=== PATIENT | female | born 1960 | race Caucasian/White ===

== ENCOUNTER → 2016-11-26 | Outpatient (CLI) | payer BC ==
[2016-11-26 10:12] LABS: CHLORIDE,CL 105 mmol/L (98-110); SODIUM,NA 141 mmol/L (136-146)
== END ==
LOC: MW.CHFP 09:18
PROVIDERS: ATTEND Emergency Medicine
DX: I10 Essential (primary) hypertension (principal); E78.00 Pure hypercholesterolemia, unspecified; E11.9 Type 2 diabetes mellitus without complications; Z86.2 Personal history of diseases of the blood and blood-forming organs and certain disorders involving the immune mechanism
CPT/HCPCS: 36415; 80053; 80061; 82728; 83036; 85027

== ENCOUNTER 2025-06-05 16:43 | Emergency (ER) | payer BC, MEDICAID ==
[2025-06-05] MEDS ORDERED: Sodium Chloride 0.9% 10 ML Syringe FLUSH PRN (16:55)
[2025-06-05] MEDS ORDERED: Sodium Chloride 0.9% 2.5 ML Syringe FLUSH PRN (16:55)
[2025-06-05] MEDS: Ondansetron 4 MG/2 ML SDV IVPUSH ONE ×2 (17:22→19:07)
[2025-06-05 17:33] LABS: BASOPHILS ABSOLUTE AUTO 0.05 K/uL (0.00-0.20); BASOPHILS PERCENT AUTO 0.7 % (0.0-1.0); EOSINOPHILS ABSOLUTE AUTO 0.36 K/uL (0.00-0.45); EOSINOPHILS PERCENT AUTO 4.8 % (0.0-6.0); IMMATURE GRAN ABSOLUTE AUTO 0.01 K/uL (0.00-0.05); IMMATURE GRAN PERCENT AUTO 0.1 % (0.0-0.4); LYMPHOCYTES ABSOLUTE AUTO 2.73 K/uL (1.00-4.80); LYMPHOCYTES PERCENT AUTO 36.6 % (24.0-44.0); MEAN PLATELET VOLUME 10.0 fL (9.4-12.3); MONOCYTES ABSOLUTE AUTO 0.60 K/uL (0.00-0.80); MONOCYTES PERCENT AUTO 8.1 % (0.0-8.0); NEUTROPHILS ABSOLUTE AUTO 3.70 K/uL (1.80-7.70); NEUTROPHILS PERCENT AUTO 49.7 % (41.0-71.0); NRBC ABSOLUTE 0.00 K/uL (0.00-0.02); NRBC PERCENT 0.0 /100WBC (0.0-0.2); PLATELET COUNT,PLT 229 K/uL (150-400); RED BLOOD CELL COUNT 4.21 M/uL (4.10-5.30); WHITE BLOOD CELL COUNT,WBC 7.45 K/uL (3.9-11.3)
[2025-06-05 17:45] LABS: INR 1.03 (0.86-1.11); PTT,PARTIAL THROMBOPLSTIN TIME 24.2 SEC (23.9-30.7)
[2025-06-05 17:52] LABS: A/G RATIO 1.2 (0.9-1.6); ALANINE AMINOTRANSFERASE,ALT 21.0 IU/L (14-63); ASPARTATE AMNIOTRANSFERASE,AST 18.0 IU/L (15-37); BILIRUBIN TOTAL 0.4 mg/dL (0.2-1.0); BLOOD UREA NITROGEN,BUN 19.0 mg/dL (7.0-18.0); CARBON DIOXIDE,CO2 25.9 mmol/L (21.0-32.0); CHLORIDE,CL 104.0 mmol/L (98-107); CREATININE 0.8 mg/dL (0.6-1.0); EST CRCL DRUG DOSING (CG) 54.31 mL/min; GLUCOSE RANDOM 144.0 mg/dL (74-106); POTASSIUM,K 3.4 mmol/L (3.5-5.1); PROTEIN TOTAL,TP 6.7 g/dL (6.4-8.2); SODIUM,NA 141.0 mmol/L (136-145)
[2025-06-05 17:54] LABS: ESTIMATED GFR 83.0 mL/min (>60)
[2025-06-05] MEDS: Alum Hydrox/Mag Hydrox/Simeth 15 ML, Lidocaine 2% 5 ML PO ONE (18:52)
[2025-06-05] MEDS: diphenhydrAMINE 50 MG/ML SDV IVPUSH ONE ×2 (18:53→20:00)
== END 2025-06-05 21:33 | disposition home or self-care (01) ==
LOC: MW.ED 16:43
DX: S52.611A Displaced fracture of right ulna styloid process, initial encounter for closed fracture (principal); S52.571A Other intraarticular fracture of lower end of right radius, initial encounter for closed fracture; Z79.899 Other long term (current) drug therapy; Z88.5 Allergy status to narcotic agent; W01.0XXA Fall on same level from slipping, tripping and stumbling without subsequent striking against object, initial encounter
CPT/HCPCS: 36415; 71045; 73090; 73110; 80053; 83036; 85025; 85610; 85730; 93005; 96361; 96374; 96375; 96376; 99284; A9270; J1200; J1308; J2270; J2405; J3490; J7030; 93010

== ENCOUNTER 2025-06-08 07:01 | Day surgery (SDC) | payer MEDICAID ==
[2025-06-08] MEDS ORDERED: Ondansetron 4 MG/2 ML SDV IVPUSH PRN (07:03)
[2025-06-08] MEDS ORDERED: Naloxone 0.4 MG/ML SDV IVPUSH PRN (07:03)
[2025-06-08] MEDS ORDERED: Albuterol 0.083% 2.5 MG/3 ML Neb Soln NEB PRN (07:03)
[2025-06-08] MEDS ORDERED: fentaNYL 50 MCG/ML SDV IVPUSH PRN (07:03)
[2025-06-08] MEDS: Lactated Ringers 1,000 ML IV SCH (07:43)
[2025-06-08] MEDS ORDERED: Bupivacaine 0.5%/EPINEPHrine 1:200,000 30 ML SDV ONE (08:18)
[2025-06-08] MEDS ORDERED: Midazolam 1 MG/ML 2 ML SDV ONE ×2 (08:21→10:35)
[2025-06-08] MEDS ORDERED: propofoL 500 MG/50 ML 50 ML ONE ×2 (09:53→11:24)
[2025-06-08] MEDS ORDERED: Propofol 200 MG/20 ML SDV ONE ×3 (09:53→12:22)
[2025-06-08] MEDS ORDERED: Ketorolac 30 MG/ML SDV ONE (14:00)
== END 2025-06-08 14:25 | disposition home or self-care (01) ==
LOC: MW.SDS 07:01
PROVIDERS: ATTEND Orthopaedic Surgery
DX: S52.571A Other intraarticular fracture of lower end of right radius, initial encounter for closed fracture (principal); F41.9 Anxiety disorder, unspecified; E78.00 Pure hypercholesterolemia, unspecified; I10 Essential (primary) hypertension; E66.9 Obesity, unspecified; Z88.1 Allergy status to other antibiotic agents; Z88.5 Allergy status to narcotic agent; Z79.899 Other long term (current) drug therapy; W01.0XXA Fall on same level from slipping, tripping and stumbling without subsequent striking against object, initial encounter
CPT/HCPCS: 25609; 76000; J1885; J2003; J2250; J2704; J7120; 01830; 64417; C1713; C1776; J0665